=== PATIENT | female | born 1935 | race Caucasian/White ===

== ENCOUNTER → 2017-02-08 | Outpatient (CLI) | payer OTHER ==
[~2017-02-08] MED LIST: ATENOLOL25 MG PO; B/P MED; LOTREL; MACROBID100 MG; TRICOR; VYTORIN
--- NOTE | ~2017-02-08 | US37 ---
[facility] A Service of [facility] RADIOLOGY TEXT RESULTS PATIENT: ABDELRAHMAN PAZ LOCATION: [facility] : 35 UNIT #: [id number] AGE: [address]: Mary Hicks SEX: F ORDER DR: [id number] [facility] [address] [place], [place] [address] [id number] O MR#: [id number] [facility] #: [id number] NAME: ABDELRAHMAN PAZ. : 1935 SEX: F STUDY DATE/TIME: 02/08/2017 8:25 UNIT: [facility] ROOM: STUDY DESCRIPTION: US Carotid W/Doppler Bilateral Attending Physician: Mary Hicks A.P.R.N. Referring Physician: Mary Hicks A.P.R.N. Ordering Physician: Mary Hicks A.P.R.N. Primary Care Physician: Jhoana Juan A.P.R.N. MEDICAL IMAGING REPORT This report is preliminary unless electronic signature is present EXAM Bilateral carotid duplex. HISTORY Carotid stenosis. Left carotid bruit. FINDINGS Carotid duplex imaging was performed. The right common carotid artery has plaque scattered. There is heterogeneous calcific plaque seen in the right external and internal carotid artery. Velocity in the right common carotid is 106, internal is 72, and external is 126 cm/sec. Right IC/CC ratio is 0.9. On the left side, severe heterogeneous calcific plaque is seen in the left carotid bulb with acoustic shadowing noted. This extends into the proximal internal carotid artery. Velocity in the left common carotid is 73, internal is 264 proximally with an end-diastolic velocity of 22, 200 x 21 in the midportion and 102 x 17 in the distal portion. External carotid velocity is 292 cm/sec. Left IC/CC ratio is 3.6. Antegrade flow is seen in the right and left vertebral arteries. IMPRESSION 1. Plaque with less than 50% stenosis is seen in the right internal carotid artery. 2. Severe greater than 70% stenosis with dense plaque is seen in the left proximal internal carotid artery. 3. Antegrade flow is seen in the right and left vertebral arteries. 4. Severe stenosis is seen in the left external carotid artery which is clinically not relevant. [facility] A Service of [facility] RADIOLOGY TEXT RESULTS PATIENT: ABDELRAHMAN PAZ LOCATION: [facility] : 35 UNIT #: [id number] AGE: [address]: Mary Hicks SEX: F ORDER DR: Dictated by... Michael Hartmann M.D. THIS IS AN ELECTRONICALLY VERIFIED REPORT Michael Hartmann M.D. at 02/09/2017 9:54 AM /mariama TD: 02/08/2017 14:09 JOB #: [id number] MEDICAL IMAGING REPORT Page 1 of 1 COPY
== END | disposition home or self-care (01) ==
LOC: CNIV 07:51
DX: I65.23 Occlusion and stenosis of bilateral carotid arteries (principal)
CPT/HCPCS: 93880

== ENCOUNTER → 2017-05-03 | Outpatient (CLI) | payer OTHER ==
--- NOTE | ~2017-05-03 | MY11 ---
[facility] A Service [facility] RADIOLOGY TEXT RESULTS PATIENT: ABDELRAHMAN PAZ LOCATION: [facility] : 35 UNIT #: [id number] AGE: [address]: Jhoana Juan LOG FEEDER SEX: F ORDER DR: [id number] [place] [id number] O MR#: [id number] Acc #: [id number] NAME: ABDELRAHMAN PAZ : 1935 SEX: F STUDY DATE/TIME: 05/03/2017 9:42 UNIT: [facility] ROOM: STUDY DESCRIPTION: MY Mammogram Screening Dig Zeus Attending Physician: Jhoana Juan A.P.R.N. Referring Physician: Jhoana Juan A.P.R.N. Ordering Physician: Jhoana Juan A.P.R.N. Primary Care Physician: Jhoana Juan A.P.R.N. MEDICAL IMAGING REPORT This report is preliminary unless electronic signature is present. EXAM Digital screening mammogram 05/03/2017 HISTORY 81-year-old woman no risk elevation. Annual screen. COMPARISON 10/16/2008. Digital imaging of each breast was completed utilizing a two-view examination of each breast in craniocaudal and mediolateral-oblique projections. Review and interpretation of digital mammograms include a second review in conjunction with FDA-approved CAD device. There is a normal parenchymal presentation bilaterally consistent with the patient's age. There are no breast masses imaged and no parenchymal asymmetry is visualized. There are no suspicious microcalcifications and I see no focal architectural disturbance. IMPRESSION Negative screening digital mammogram. One-year followup recommended. Patients over the age of 40 are entered into a reminder system with target due date for the next mammogram. A result letter will also be sent to the patient. BIRADS: 1 Negative Dictated by... Hugo Thomas M.D. [facility] A Service [facility] RADIOLOGY TEXT RESULTS PATIENT: ABDELRAHMAN PAZ LOCATION: [facility] : 35 UNIT #: [id number] AGE: [address]: Jhoana Juan SEX: F ORDER DR: THIS IS AN ELECTRONICALLY VERIFIED REPORT Hugo Thomas M.D. at 05/03/2017 3:08 PM Natalie TD: 05/03/2017 13:58 JOB #: [id number] MEDICAL IMAGING REPORT Page 1 of 1
== END | disposition home or self-care (01) ==
LOC: SMAM 08:29
DX: Z12.31 Encounter for screening mammogram for malignant neoplasm of breast (principal)
CPT/HCPCS: G0202